=== PATIENT | female | born 1990 | race Caucasian/White ===

== ENCOUNTER 2016-08-09 08:34 | Day surgery (SDC) | payer BC ==
[2016-08-05 15:25] VITALS: BMI 26.5
[~2016-08-09 08:34] MED LIST: LACTATED RINGERS 1,000 ML IV SCH
[2016-08-09] MEDS ORDERED: LIDOCAINE 1% 20 ML VIAL (10MG/ML) FOR IV START INTRADERMA ONE (09:20)
[2016-08-09 09:40] VITALS: RESP 16; TEMP 97.5
[2016-08-09] MEDS ORDERED: PROPOFOL 10 MG/ML 20 ML VIAL IV ONE (09:42)
[2016-08-09] MEDS ORDERED: LIDOCAINE 1% INJ 10MG/ML (20 ML MDV) ONE (09:42)
[2016-08-09] MEDS ORDERED: fentaNYL (PF) 50 MCG/ML 2 ML AMP ONE (09:42)
--- NOTE | 2016-08-09 10:12 | P.PCN ---
Date of Procedure: 08/09/16 Preoperative Diagnosis: Postoperative Diagnosis: Procedure(s) Performed: Procedure: Colonoscopy and biopsy. Preoperative diagnosis: Change in bowel habits and family history of Crohn's disease. Postoperative diagnosis: Exam of the colon and terminal ileum within normal limits. Preparation: HalfLytely prep. Sedation: Was provided by anesthesia. Brief clinical history: The patient is a 26-year-old female who is referred for this evaluation because of change in bowel habits and occasional rectal bleeding. There is family history of Crohn's disease in her father. This evaluation is to assess for inflammatory bowel disease. Procedure: With the patient on her left lateral decubitus position and after informed consent and adequate sedation the perianal area was inspected and it did not show any fissures or fistulas. There were no masses felt on digital rectal examination. The Olympus CFQ 160L video colonoscope was then inserted in the rectum in the usual fashion and advanced to the cecum. I intubated the ileocecal valve and examined the terminal ileum. Terminal ileum and colon appeared healthy with no edema, erythema, friability, ulceration, exudation or spontaneous bleeding. No polyps or tumors were seen or any obvious diverticular disease or other pathology. I retroflexed the endoscope in the rectum before the endoscope was withdrawn. Slightly prominent anal papillae noted but there was no bleeding or other pathology. The patient tolerated the procedure well. Plan: The patient was reassured. Will await biopsy results. She will follow- up with you as planned and further plans will be made based on her course. Other causes of bowel issues could be considered including dietary intolerances and functional bowel disease. I will be happy to see in the future if her symptoms persist. Implants: Indications for Procedure: Operative Findings: Description of Procedure:
[2016-08-09 10:37] VITALS: BP 111/80; PULSE 73
== END 2016-08-09 10:58 | disposition home or self-care (01) ==
LOC: ORWHC2ENDO 08:34
DX: R19.4 Change in bowel habit (principal); K62.5 Hemorrhage of anus and rectum; Z83.79 Family history of other diseases of the digestive system
CPT/HCPCS: 81025; 88305; 45380; J2001; J3010; J2704

== ENCOUNTER → 2016-10-04 | Outpatient (CLI) | payer BC ==
[2016-10-04 12:34] LABS: CH 30.4; CHCM 35.9; HCT 38.6 % (34.0-46.0); HDW 2.63; HGB 13.2 gm/dL (11.4-16.0); MCHC 34.1 g/dL (31.0-37.0); Mean Platelet Volume 7.3; RBC 4.54 m/uL (3.80-5.40); RDW 14.1 % (11.5-15.5); WBC 9.7 k/uL (3.8-10.6)
[2016-10-04 12:48] LABS: Glucose 98 mg/dL (74-99); Non-African American GFR(MDRD) >60 (>60 ml/min/1.73 sqM)
[2016-10-04 13:18] LABS: Hepatitis B Surface Ag Index 0.06
[2016-10-04 15:46] LABS: Treponemal Ab Non-Reactive (Non-Reactive)
[2016-10-05 07:02] LABS: Toxoplasma Antibody (IgG) <3.0 IU/mL (<7.2)
== END | disposition home or self-care (01) ==
LOC: LABWHC1 11:55
PROVIDERS: ATTEND Obstetrics & Gynecology
DX: O26.811 Pregnancy related exhaustion and fatigue, first trimester (principal); Z3A.00 Weeks of gestation of pregnancy not specified
CPT/HCPCS: 36415; 82565; 82947; 85027; 86762; 86777; 86778; 86780; 86850; 86900; 86901; 87340; 87390

== ENCOUNTER → 2016-11-15 | Outpatient (CLI) | payer BC ==
[2016-11-16 10:27] LABS: Alpha Fetoprotein (M.O.M) 1.28; B-HCG (M.O.M.) 0.97; Gestational Age (days) 0; Human Chorionic Gonadotropin 36.4 IU/mL; Inhibin A (M.O.M.) 0.93; Interpretation SeeBelow; Maternal Age at EDD (Yrs) 25; Smoker No; Unconjugated Estriol (M.O.M.) 0.95
== END | disposition home or self-care (01) ==
LOC: LABWHC1 11:13
PROVIDERS: ATTEND Obstetrics & Gynecology
DX: Z34.82 Encounter for supervision of other normal pregnancy, second trimester (principal)
CPT/HCPCS: 36415; 82105; 82677; 84702; 86336

== ENCOUNTER 2017-04-13 16:16 | Inpatient (IN) | payer BC ==
[2017-04-13 17:06] LABS: Appearance,Urine Turbid (Clear); Bacteria,Urine Many /hpf; Bilirubin,Urine Negative (Negative); Blood,Urine Trace (Negative); Budding Yeast,Urine Few /hpf; Color,Urine Yellow; Glucose,Urine (UA) Negative (Negative); Ketones,Urine 1+ (Negative); Leukocyte Esterase,Urine Large (Negative); Mucus,Urine Occasional /hpf; Nitrite,Urine Positive (Negative); Protein,Urine Trace (Negative); RBC,Urine 20 /hpf (0-5); Squamous Epithelial Cell,Urine 30 /hpf (0-4); Urobilinogen,Urine <2.0 mg/dL (<2.0); WBC,Urine 34 /hpf (0-5)
[2017-04-13 17:26] LABS: Basophils % (A) 0 %; Eosinophils # (A) 0.1 k/uL (0-0.7); Eosinophils % (A) 1 %; HCT 33.8 % (34.0-46.0); HGB 10.6 gm/dL (11.4-16.0); Hypochromasia Moderate; Lymphocytes # (A) 1.9 k/uL (1.0-4.8); Lymphocytes % (A) 14 %; MCH 24.2 pg (25.0-35.0); MCHC 31.4 g/dL (31.0-37.0); MCV 77.2 fL (80.0-100.0); Mean Platelet Volume 7.2; Monocytes # (A) 0.7 k/uL (0-1.0); Monocytes % (A) 5 %; Neutrophils # (A) 10.7 k/uL (1.3-7.7); Neutrophils % (A) 78 %; Platelet Count 437 k/uL (150-450); Poikilocytosis Slight; RBC 4.38 m/uL (3.80-5.40); WBC 13.8 k/uL (3.8-10.6)
[2017-04-13] MEDS ORDERED: LIDOCAINE 1% (PF) 10 MG/ML (30 ML SDV) SQ PRN (17:26)
[2017-04-13] MEDS ORDERED: OXYTOCIN 10 UNIT/ML 1 ML VIAL IM PRN (17:26)
[2017-04-13] MEDS ORDERED: CARBOPROST TROMETHAMINE 250 MCG/ML 1 ML AMP IM PRN (17:26)
[2017-04-13] MEDS ORDERED: TERBUTALINE 1 MG/ML VIAL SQ PRN (17:26)
[2017-04-13] MEDS ORDERED: METHYLERGONOVINE 0.2 MG/ML 1 ML AMP IM PRN (17:26)
[2017-04-13] MEDS ORDERED: AMPICILLIN 2,000 MG in SODIUM CHLORIDE 0.9% 100 ML IVPB STA (17:29)
[2017-04-13] MEDS ORDERED: OXYTOCIN 20 UNITS/1000 ML NS 1,000 ML IV SCH (17:30)
[2017-04-13 17:50] LABS: ALT 28 U/L (9-52); AST 25 U/L (14-36); Blood Urea Nitrogen 7 mg/dL (7-17); LDH 568 U/L (313-618); Uric Acid 5.5 mg/dL (3.7-7.4)
[2017-04-13] MEDS: LACTATED RINGERS 1,000 ML IV SCH ×2 (18:07→23:42)
[2017-04-13] MEDS ORDERED: INFLUENZA VACCINE (6 MOS+) 60 MCG/0.5 ML SYRINGE IM ONE (18:18)
--- NOTE | 2017-04-13 19:04 | P.HPOB ---
History of Present Illness H&P Date: 04/13/17 Chief Complaint: Headache and blurred vision This is a 27-year-old female 2 para 0 with an estimated date of confinement of 05/01/2017, estimated gestational age of 37-3/7 weeks, who presented to labor and delivery complaining of headache and blurry vision today. She states the headache is fairly mild but she did have trouble seeing earlier today. She denies any chest pain. She admits to good movement. She denies any regular contractions. She has been having some swelling in her feet and a little bit in her hands. Her blood pressure initially in triage was 160/87. They have come down slightly but still are running in the 140s over 80s to 90s. Her urine showed trace protein. Her lab work is pending at this time. Based on the fact she is over 37 weeks and has a minimum of gestational hypertension, the decision is made to admit and induce labor. labs: GC/chlamydia-negative HIV-nonreactive Syphilis antibody-nonreactive Toxoplasma-negative Random glucose-98 Hepatitis B surface antigen-negative Hemoglobin-13.2 Rubella-immune Blood type-A+ Antibody screen-negative Quad screen-negative Obstetrical ultrasound-normal anatomy One hour Glucola-150 Three-hour Glucola-within normal limits Group B streptococcus-positive Obstetrical history: . History of 1 miscarriage which required D&C. Gynecologic history: No history of sexual transmitted diseases. Social history: She is engaged. She works full-time at a [employer]. Review of Systems Constitutional: Denies chills, Denies fever Eyes: bilateral blurred vision Cardiovascular: Denies chest pain, Denies shortness of breath Respiratory: Denies cough Gastrointestinal: Denies abdominal pain, Denies diarrhea, Denies nausea, Denies vomiting Genitourinary: Reports Musculoskeletal: Reports low back pain Neurological: Reports headaches, Reports visual changes Past Medical History Additional Past Medical History / Comment(s): She has a history of shingles pain does get outbreaks from time to time. History of Any Multi-Drug Resistant Organisms: None Reported Additional Past Surgical History / Comment(s): D&C Past Anesthesia/Blood Transfusion Reactions: No Reported Reaction Past Psychological History: No Psychological Hx Reported Smoking Status: Never smoker Past Alcohol Use History: None Reported Past Drug Use History: None Reported - Past Family History Mother Family Medical History: Cancer Additional Family Medical History / Comment(s): breast Medications and Allergies Home Medications Medication Instructions Recorded Confirmed Type Iron 45 mg PO DAILY 04/13/17 04/13/17 History Pnv,Calcium 72/Iron/Folic Acid 1 tab PO DAILY 04/13/17 04/13/17 History [ Plus Tablet] valACYclovir [Valtrex] 500 mg PO DAILY 04/13/17 04/13/17 History Allergies Allergy/AdvReac Type Severity Reaction Status Date / Time No Known Allergies Allergy Verified 04/13/17 16:34 Exam Osteopathic Statement: *. No significant issues noted on an osteopathic structural exam other than those noted in the History and Physical/Consult. - Vital Signs Vital signs: Intake and Output 04/13/17 04/13/17 04/13/17 06:59 14:59 22:59 Other: Weight 83.915 kg Patient Weight 04/14/17 06:59 Weight 83.915 kg HEENT: Within normal limits Heart: Regular rate and rhythm Lungs: Clear to auscultation bilaterally Abdomen: Cervix: 1-1/2 cm/60%/-2 station heart tones: Reactive Contractions: Irregular Extremities: 1+ pitting edema with 3+ deep tendon reflexes in bilateral lower extremities. Results Result Diagrams: 04/13/17 17:15 Abnormal Lab Results - Last 24 Hours (Table) 04/13/17 04/13/17 Range/Units 16:49 17:15 WBC 13.8 H (3.8-10.6) k/uL Hgb 10.6 L (11.4-16.0) gm/dL Hct 33.8 L (34.0-46.0) % MCV 77.2 L (80.0-100.0) fL MCH 24.2 L (25.0-35.0) pg Neutrophils # 10.7 H (1.3-7.7) k/uL Urine Appearance Turbid H (Clear) Urine Protein Trace H (Negative) Urine Ketones 1+ H (Negative) Urine Blood Trace H (Negative) Urine Nitrite Positive H (Negative) Ur Leukocyte Esterase Large H (Negative) Urine RBC 20 H (0-5) /hpf Urine WBC 34 H (0-5) /hpf Urine WBC Clumps Few H (None) /hpf Ur Squamous Epith Cells 30 H (0-4) /hpf Urine Bacteria Many H (None) /hpf Urine Mucus Occasional H (None) /hpf Urine Yeast (Budding) Few H (None) /hpf Assessment and Plan (1) Gestational hypertension Current Visit: Yes Status: Acute Code(s): O13.9 - GESTATIONAL HTN W/O SIGNIFICANT PROTEINURIA, UNSP TRIMESTER SNOMED Code(s): 16983938 (2) 37 weeks gestation of Current Visit: Yes Status: Acute Code(s): Z3A.37 - 37 WEEKS GESTATION OF SNOMED Code(s): 05659483 Plan: I have spoken with the patient regarding induction of labor due to the fact that she has visual changes along with elevated blood pressures and she is beyond 37 weeks. She is therefore diagnosed with gestational hypertension and will undergo oxytocin induction of labor. We'll carefully monitor blood pressures. Expectant management.
[2017-04-13] MEDS ORDERED: BUTORPHANOL 1 MG/ML 1 ML VIAL IV PRN (19:14)
[2017-04-13 19:24] VITALS: BMI 32.8
[2017-04-13] MEDS: AMPICILLIN 1,000 MG in SODIUM CHLORIDE 0.9% 50 ML IVPB SCH (22:25)
[2017-04-13] MEDS ORDERED: fentaNYL (PF) 50 MCG/ML 5 ML AMP ONE (23:49)
[2017-04-13] MEDS ORDERED: BUPIVACAINE (PF) 0.25% 30 ML VIAL ONE (23:49)
[2017-04-13] MEDS ORDERED: SODIUM CHLORIDE 0.9% 100 ML BAG ONE (23:49)
--- NOTE | 2017-04-14 02:41 | P.PROBDLV ---
Vaginal Delivery Note - . Vaginal Delivery Note: The patient underwent oxytocin induction of labor and artificial rupture membranes with clear fluid noted. Her blood pressures did stay stable throughout her labor. She did receive epidural anesthesia. Once reaching complete dilation, she began pushing. 's head came to a crown. She pushed for just under an hour. With one further push the 's head delivered across the perineum and a left occiput anterior position. She was encouraged to continue pushing, however it was noted that shoulder dystocia was present. She was placed in Evangelina position and encouraged one further push. This did not dislodge the shoulder and therefore I placed my gloved finger behind the baby's back and turned the posterior shoulder and a counterclockwise manner and along with suprapubic pressure from nursing staff, in the next push the shoulder did dislodge. The entire shoulder dystocia lasted approximately 30 seconds. Nose and mouth were then bulb suctioned. With one further push the remainder the easily delivered and was placed on mother's abdomen. Nuchal cord was reduced around the body with delivery. A viable female infant is noted with scores of 8 at 1 minute and 9 at 5 minutes and weight of 6 pounds 7.9 ounces. Her placenta delivered shortly thereafter, intact, with a three-vessel cord. Uterus contracted well after oxytocin was given and uterine massage was carried out. Inspection of the perineum revealed a small first-degree perineal laceration. This area was anesthetized with 1% lidocaine and then sutured with 3-0 Vicryl suture in a running locked fashion. There was noted some bilateral periurethral abrasions, however these were hemostatic. Estimated blood loss is approximately 150 mL's. Both mother and infant are in stable condition.
--- NOTE | 2017-04-14 02:48 | P.MSEPDOC ---
Presenting Problems - Arrival Data Date of Arrival on Unit: 04/13/17 Time of Arrival on Unit: 16:26 Mode of Transport: Ambulatory - Complaint OB-Reason for Admission/Chief Complaint: PIH Comment: headache, dizziness, swelling Medical History - Information : 2 Para: 0 Term: 0 : 0 Abortions: Spontaneous or Elective: 1 Number of Living Children: 0 - Gestational Age Gestational Age by ELVIS (wks/days): 37 Weeks and 2 Days Review of Systems - Review of Systems Neurological: Dizziness Vital Signs - Temperature Temperature: 97.5 F Temperature Source: Temporal Artery Scan - Pulse Right Pulse Rate: 105 Pulse Assessment Method: Automatic Cuff - Respirations Respiratory Rate: 16 Oxygen Delivery Method: Room Air - Blood Pressure Right Arm Blood Pressure: 135/66 Blood Pressure Mean: 89 Blood Pressure Source: Automatic Cuff Medical Screen Scoring (Pre) - Cervical Exam Dilation: 1-3 cm = 1 Membranes: Intact - Uterine Contractions Frequency: > 5 minutes apart = 1 Duration: > 40 seconds = 2 - Maternal Vital Signs Maternal Blood Pressure: Systolic >139 = 2 Signs of Preeclampsia: Headache = 1, Nausea/Vomiting = 1, Visual Disturbance = 1 , 3+ edema of dependent extremities = 2 Maternal Respirations: N/A - Pain Assessment Pain Location and Character: Head Pain Scale Used: Numeric (1 - 10) Pain Intensity: 4 Pain Description: *Acute, Aching Pain Frequency: Constant Pain Duration: 3 Pain Duration Units: Hours Pain Behavior: None Exhibited Pain Aggravating Factors: Activity, Bright Light Non-Pharmacological Interventions: Darkened Room, Reduce Environmental Stimuli - Maternal Trauma Maternal Trauma: N/A - Assessment Baseline FHR: 135 Heart Rate - NICHD Category: Category I (Normal) = 0 NST: Reactive Position: N/A Station: N/A - Total Score Total Score (Pre): 11 - Level of Risk Level of Risk: High (10+) Physician Notification (Pre) - Physician Notified Physician Notified Date: 04/13/17 Physician Notified Time: 17:15 Spoke With: Ana Zarco Order Received: Yes (admit for labor induction, [facility]) Disposition - Disposition OB Disposition: Admit I agree with the RN Medical Screening Exam: Yes Risk & Benefit of care provided described in d/c instruction: Yes Diagnosis: GESTATIONAL HTN W/O SIGNIFICANT PROTEINURIA, THIRD TRIMESTER
[2017-04-14] MEDS ORDERED: OXYTOCIN 20 UNITS/1000 ML NS 1,000 ML IV SCH (03:12)
[2017-04-14] MEDS ORDERED: BUPIVACAINE (PF) 0.25% 25 ML, fentaNYL (PF) 200 MCG in SODIUM CHLORIDE 0.9% 71 ML EPIDURAL ONE (07:27)
[2017-04-14] MEDS ORDERED: diphenhydrAMINE 50 MG/ML 1 ML VIAL IVP PRN ×2 (07:59)
[2017-04-14] MEDS ORDERED: WITCH HAZEL 1 EACH MED..PAD TOPICAL PRN (07:59)
[2017-04-14] MEDS ORDERED: ACETAMINOPHEN TAB 325 MG TAB PO PRN (07:59)
[2017-04-14] MEDS ORDERED: SIMETHICONE 80 MG CHEWABLE PO PRN (07:59)
[2017-04-14] MEDS ORDERED: LANOLIN CREAM 5 GM TUBE TOPICAL PRN (07:59)
[2017-04-14] MEDS ORDERED: BENZOCAINE/MENTHOL SPRAY 1 GM/SPRAY AEROSOL TOPICAL PRN (07:59)
[2017-04-14] MEDS ORDERED: diphenhydrAMINE 25 MG CAP PO PRN (07:59)
[2017-04-14] MEDS ORDERED: ZOLPIDEM 5 MG TAB PO PRN (07:59)
[2017-04-14] MEDS ORDERED: HYDROCORTISONE 2.5% RECTAL CREAM 30 GM TUBE RECTAL PRN (07:59)
[2017-04-14] MEDS ORDERED: diphenhydrAMINE 50 MG CAP PO PRN (07:59)
[2017-04-14] MEDS: SENNOSIDES-DOCUSATE SODIUM 1 EACH TAB PO SCH ×2 (09:38→19:58)
[2017-04-14] MEDS: valACYclovir 500 MG TAB PO SCH (09:38)
[2017-04-14] MEDS: IBUPROFEN 600 MG TAB PO PRN (11:34)
[2017-04-14] MEDS ORDERED: INFLUENZA VACCINE (6 MOS+) 60 MCG/0.5 ML SYRINGE IM ONE (14:22)
[2017-04-14] MEDS: AMPICILLIN 1,000 MG in SODIUM CHLORIDE 0.9% 50 ML IVPB SCH (19:35)
[2017-04-15] MEDS: IBUPROFEN 600 MG TAB PO PRN ×2 (03:03→12:09)
[2017-04-15 07:54] LABS: Basophils # (A) 0.1 k/uL (0-0.2); Basophils % (A) 0 %; Eosinophils # (A) 0.1 k/uL (0-0.7); Eosinophils % (A) 1 %; HCT 29.3 % (34.0-46.0); Hypochromasia Marked; Lymphocytes # (A) 2.6 k/uL (1.0-4.8); Lymphocytes % (A) 20 %; MCH 24.2 pg (25.0-35.0); MCV 77.9 fL (80.0-100.0); Mean Platelet Volume 6.8; Monocytes # (A) 0.7 k/uL (0-1.0); Monocytes % (A) 5 %; Neutrophils # (A) 9.2 k/uL (1.3-7.7); Neutrophils % (A) 71 %; Platelet Count 381 k/uL (150-450); Poikilocytosis Slight; RBC 3.76 m/uL (3.80-5.40); RDW 15.1 % (11.5-15.5)
[2017-04-15 07:55] LABS: HGB 9.1 gm/dL (11.4-16.0)
[2017-04-15] MEDS: valACYclovir 500 MG TAB PO SCH (08:43)
--- NOTE | 2017-04-15 10:38 | P.DS ---
Providers Date of admission: 04/13/17 17:30 Expected date of discharge: 04/15/17 Attending physician: Lizzie Perez Primary care physician: Stated None - Discharge Diagnosis(es) (1) Gestational hypertension Current Visit: Yes Status: Acute (2) Normal vaginal delivery Current Visit: Yes Status: Acute Hospital Course: PT presented with elevated blood pressures and underwent an induction of labor. She had a normal vaginal delivery. HEr pp course was uncomplicated. She will be discharged home PPD #1 in stable condition to follow up with Dr Perez in 6 weeks. Plan - Discharge Summary New Discharge Prescriptions: No Action valACYclovir [Valtrex] 500 mg PO DAILY Pnv,Calcium 72/Iron/Folic Acid [ Plus Tablet] 1 tab PO DAILY Iron 45 mg PO DAILY Discharge Medication List Iron 45 mg PO DAILY 04/13/17 [History] Pnv,Calcium 72/Iron/Folic Acid [ Plus Tablet] 1 tab PO DAILY 04/13/17 [ History] valACYclovir [Valtrex] 500 mg PO DAILY 04/13/17 [History]
[2017-04-15] MEDS: SENNOSIDES-DOCUSATE SODIUM 1 EACH TAB PO SCH ×2 (12:12→20:25)
[2017-04-16] MEDS: SENNOSIDES-DOCUSATE SODIUM 1 EACH TAB PO SCH (08:43)
[2017-04-16 08:47] VITALS: PULSE 77
[2017-04-16] MEDS: valACYclovir 500 MG TAB PO SCH (09:10)
[2017-04-16] MEDS: IBUPROFEN 600 MG TAB PO PRN (10:04)
[2017-04-16 17:15] VITALS: BP 145/86; RESP 18; TEMP 97.6
== END 2017-04-16 17:45 | disposition home or self-care (01) | DRG 775 ==
LOC: FBPOP 16:16 → 4FBP 17:30
PROVIDERS: ADMIT Obstetrics & Gynecology; ATTEND Obstetrics & Gynecology
PROC: 10E0XZZ Delivery of Products of Conception, External Approach (ICD-10-PCS; principal; 2017-04-14)
PROC: 3E033VJ Introduction of Other Hormone into Peripheral Vein, Percutaneous Approach (ICD-10-PCS; 2017-04-14)
PROC: 10907ZC Drainage of Amniotic Fluid, Therapeutic from Products of Conception, Via Natural or Artificial Opening (ICD-10-PCS; 2017-04-14)
PROC: 00HU33Z Insertion of Infusion Device into Spinal Canal, Percutaneous Approach (ICD-10-PCS; 2017-04-14)
PROC: 3E0R3NZ Introduction of Analgesics, Hypnotics, Sedatives into Spinal Canal, Percutaneous Approach (ICD-10-PCS; 2017-04-14)
PROC: 0HQ9XZZ Repair Perineum Skin, External Approach (ICD-10-PCS; 2017-04-14)
DX: O13.4 Gestational [pregnancy-induced] hypertension without significant proteinuria, complicating childbirth (principal); O66.0 Obstructed labor due to shoulder dystocia; O99.824 Streptococcus B carrier state complicating childbirth; O70.0 First degree perineal laceration during delivery; O69.81X0 Labor and delivery complicated by cord around neck, without compression, not applicable or unspecified; Z37.0 Single live birth; Z3A.37 37 weeks gestation of pregnancy; Z86.19 Personal history of other infectious and parasitic diseases; Z80.3 Family history of malignant neoplasm of breast; Z79.899 Other long term (current) drug therapy
CPT/HCPCS: 59025; 81001; 82565; 83615; 84450; 84460; 84520; 84550; 85025; 88307; 90686; 99215

== ENCOUNTER 2017-06-02 06:12 | Day surgery (SDC) | payer BC ==
[2017-05-30 14:36] VITALS: BMI 27.6
--- NOTE | 2017-06-01 19:10 | P.HPOB ---
History of Present Illness H&P Date: 06/01/17 Chief Complaint: Family planning This is a 27-year-old female 2 para 1 who presents for laparoscopic bilateral tubal ligation via fulguration for family planning. She recently delivered her child vaginally and wishes permanent sterilization. She has not resumed any intercourse since delivery. Obstetrical history: G2 P 1. History of 1 vaginal delivery and 1 miscarriage. Gynecologic history: No history of sexual transmitted diseases. Social history: She is engaged. She works at a [employer]. Review of Systems Constitutional: Denies chills, Denies fever Eyes: denies blurred vision, denies pain Ears, nose, mouth and throat: Denies headache, Denies sore throat Cardiovascular: Denies chest pain, Denies shortness of breath Respiratory: Denies cough Gastrointestinal: Denies abdominal pain, Denies diarrhea, Denies nausea, Denies vomiting Genitourinary: Denies dysuria, Denies hematuria Menstruation: Reports amenorrhea (Lactational) Musculoskeletal: Denies myalgias Integumentary: Denies pruritus, Denies rash Neurological: Denies numbness, Denies weakness Psychiatric: Denies anxiety, Denies depression Past Medical History Past Medical History: No Reported History Additional Past Medical History / Comment(s): She has a history of shingles pain does get outbreaks from time to time. History of Any Multi-Drug Resistant Organisms: None Reported Additional Past Surgical History / Comment(s): D&C Past Anesthesia/Blood Transfusion Reactions: No Reported Reaction Past Psychological History: No Psychological Hx Reported Smoking Status: Never smoker Past Alcohol Use History: None Reported Past Drug Use History: None Reported - Past Family History Mother Family Medical History: Cancer Additional Family Medical History / Comment(s): breast Medications and Allergies Home Medications Medication Instructions Recorded Confirmed Type No Known Home Medications [No 05/30/17 05/30/17 History Known Home Medications] Allergies Allergy/AdvReac Type Severity Reaction Status Date / Time No Known Allergies Allergy Verified 05/30/17 14:32 Exam Osteopathic Statement: *. No significant issues noted on an osteopathic structural exam other than those noted in the History and Physical/Consult. HEENT: Within normal limits Lungs: Clear to auscultation bilaterally Heart: Regular rate and rhythm Abdomen: Soft, nontender Pelvic exam: Uterus is small, anteverted, with no adnexal masses or tenderness noted. Extremities: Negative Homans Assessment and Plan (1) Family planning Status: Acute Code(s): Z30.09 - ENCOUNTER FOR OTH GENERAL CNSL AND ADVICE ON CONTRACEPTION SNOMED Code(s): 679817663 Plan: Proceed with laparoscopic bilateral tubal ligation via fulguration. I have discussed the risks, benefits, and alternative therapies for the above- mentioned procedure and for both sedation/anesthesia as well as necessary blood products administration, if indicated, as they pertain to this patient. The patient has indicated her understanding and acceptance of the risks and procedures discussed.
[~2017-06-02 06:12] MED LIST changes: +DEXAMETHASONE SOD PHOSPHATE 10 MG/ML 1 ML VIAL IV ONE; +MIDAZOLAM 2 MG/2 ML VIAL IV PRN; +ONDANSETRON 4 MG/2 ML VIAL IVP ONE; +Pre Op ABX Message 1 EACH MISC MISCELLANE ONE; +SCOPOLAMINE 1.5MG/72HR PATCH TRANSDERM ONE; +fentaNYL (PF) 50 MCG/ML 2 ML AMP IV PRN
[2017-06-02 06:42] VITALS: RESP 16
[2017-06-02] MEDS ORDERED: LIDOCAINE 1% 20 ML VIAL (10MG/ML) FOR IV START INTRADERMA ONE (06:54)
[2017-06-02] MEDS ORDERED: fentaNYL (PF) 50 MCG/ML 2 ML AMP ONE (07:28)
[2017-06-02] MEDS ORDERED: ROCURONIUM BROMIDE 10 MG/ML 10 ML VIAL IV ONE (07:28)
[2017-06-02] MEDS ORDERED: LIDOCAINE 1% INJ 10MG/ML (20 ML MDV) ONE (07:28)
[2017-06-02] MEDS ORDERED: KETOROLAC 30 MG/ML 1 ML VIAL ONE (07:28)
[2017-06-02] MEDS ORDERED: GLYCOPYRROLATE 0.2 MG/ML 2 ML VIAL ONE (07:28)
[2017-06-02] MEDS ORDERED: SUCCINYLCHOLINE CHLORIDE 100 MG/5 ML SYR IV ONE (07:28)
[2017-06-02] MEDS ORDERED: NEOSTIGMINE 1 MG/ML 10 ML VIAL ONE (07:28)
[2017-06-02] MEDS ORDERED: MIDAZOLAM 2 MG/2 ML VIAL ONE (07:28)
[2017-06-02] MEDS ORDERED: PROPOFOL 10 MG/ML 20 ML VIAL IV ONE (07:28)
[2017-06-02] MEDS ORDERED: BUPIVACAINE (PF) 0.25% 30 ML VIAL SQ ONE ×2 (07:50→08:08)
[2017-06-02] MEDS ORDERED: MEPERIDINE 50 MG/ML SYRINGE IVP ONE ×2 (08:34→08:39)
--- NOTE | 2017-06-02 08:37 | P.OP ---
Date of Procedure: 06/02/17 Preoperative Diagnosis: Family planning Postoperative Diagnosis: Same Procedure(s) Performed: Laparoscopic bilateral tubal ligation via fulguration Anesthesia: YANETH Surgeon: Lizzie Perez Estimated Blood Loss (ml): 20 Pathology: none sent Condition: stable Disposition: same day Indications for Procedure: This is a 27-year-old female 2 para 1 who presents for laparoscopic bilateral tubal ligation via fulguration for family planning. She recently delivered her child vaginally and wishes permanent sterilization. She has not resumed any intercourse since delivery. Operative Findings: Uterus is anteverted with no adnexal masses palpated. Uterus is sounded to 8 cm. Upon laparoscopy, both tubes and ovaries appeared normal. Uterus appeared normal. Appendix was visualized and appeared normal. Description of Procedure: The patient is taken to the operating room where she is placed in the dorsal lithotomy position. She is prepped and draped in the normal sterile fashion. Examination is performed under anesthesia. Uterus is found to be in a anteverted position. No adnexal masses were palpated. Next a bivalve speculum was placed in the patient's vagina. A single-tooth tenaculum was used to grasp the anterior lip of the cervix. The uterus was sounded to 8 cm. The kroner uterine manipulator was then inserted through the cervix and the balloon was inflated. The single-tooth tenaculum is removed speculum was removed gloves were changed and attention was turned to the abdomen. The infraumbilical fold was grasped in transverse fashion with 2 Allis clamps. A small transverse incision was made with a scalpel. A hemostat was used to carry the incision down to the underlying layer of fascia. A towel clip was placed above the umbilicus for retraction. A 11 mm disposable bladeless trocar was then inserted into the peritoneal cavity under direct visualization. Once inside, pneumoperitoneum was achieved with CO2 gas. The insert was removed and the camera was placed. Intraperitoneal placement was confirmed. No bleeding was noted. Next the patient was placed in Trendelenburg position. A small stab incision was made suprapubically and a 5 mm disposable bladeless trocar was inserted into the peritoneal cavity under direct visualization. Once inside pelvic contents were inspected. Next a bipolar Kleppinger instrument was placed through the inferior trocar and the midportion of each tube was brought away from other structures and completely fulgurated on approximate 2-3 cm segment of each tube. Excellent hemostasis was noted. A picture was taken. Pneumoperitoneum was released after the inferior trocar was removed under direct visualization. The upper trocar was then removed. The fascial incision was closed with 0 Vicryl suture in interrupted vloisa-mu-focel stitch. The skin incisions were then closed with 4-0 Vicryl suture in a subcuticular fashion. Next the kroner uterine manipulator was removed. There was some bleeding noted and therefore the speculum was replaced and cervix was visualized. Some pressure was applied to the anterior lip of the cervix where the single-tooth tenaculum had grasp the cervix and once this was removed. Minimal bleeding was noted. The patient was noted to be also on her menses. The speculum was then removed. All sponge and needle counts are correct. The patient is then taken to recovery room in stable condition.
[2017-06-02 08:50] VITALS: TEMP 97
[2017-06-02] MEDS ORDERED: LACTATED RINGERS 1,000 ML IV ONE ×2 (08:51)
[2017-06-02 09:46] VITALS: BP 137/91; PULSE 64
== END 2017-06-02 10:08 | disposition home or self-care (01) ==
LOC: OR 06:12
PROVIDERS: ATTEND Obstetrics & Gynecology
DX: Z30.2 Encounter for sterilization (principal); K21.9 Gastro-esophageal reflux disease without esophagitis; Z80.3 Family history of malignant neoplasm of breast
CPT/HCPCS: 58670; 81025; J2250; J1100; J2710; J2175; J2405; J2001; J3010; J1885; J0330; J2704

== ENCOUNTER → 2017-11-28 | Outpatient (CLI) | payer BC ==
--- NOTE | 2017-11-28 17:22 | XR ---
Left foot HISTORY: Left foot pain 3 views of the left foot No comparisons Soft tissue swelling is noted. Bone mineralization, joint spaces and alignment are maintained. IMPRESSION: Mild soft tissue swelling.
== END | disposition home or self-care (01) ==
LOC: RADXRMAIN 14:20
PROVIDERS: ATTEND Family Medicine
DX: M79.89 Other specified soft tissue disorders (principal); M79.672 Pain in left foot

== ENCOUNTER → 2018-04-20 | Outpatient (CLI) | payer BC ==
--- NOTE | 2018-04-20 09:40 | XR ---
EXAMINATION TYPE: XR chest 2V DATE OF EXAM: 04/20/2018 COMPARISON: NONE HISTORY: Persistent cough for 2 months TECHNIQUE: Frontal and lateral views of the chest are obtained. FINDINGS: There is no focal air space opacity, pleural effusion, or pneumothorax seen. The cardiac silhouette size is within normal limits. The osseous structures are intact. Metallic linear density overlies the lateral left midlung on the frontal view only, external to the patient. IMPRESSION: No acute cardiopulmonary process.
== END | disposition home or self-care (01) ==
LOC: RADXRMAIN 09:05
PROVIDERS: ATTEND Family Medicine
DX: J20.8 Acute bronchitis due to other specified organisms (principal)
CPT/HCPCS: 71046

== ENCOUNTER → 2019-08-26 | Outpatient (CLI) | payer BC ==
--- NOTE | 2019-08-26 21:41 | XR ---
EXAMINATION TYPE: XR cervical spine comp DATE OF EXAM: 08/26/2019 TECHNIQUE: Frontal, lateral, oblique, and open mouth view of the cervical spine are obtained. HISTORY: M54.2 headaches with neck pain and nausea. COMPARISON: None FINDINGS: The cervical spine is visualized in its entirety from C1 thru the top of T1 level, there i s slight grade 1 retrolisthesis C2 and C3 and C3 on C4 without evidence of acute fracture or dislocat ion. The pre-vertebral soft tissue appears within normal limits. The C1-C2 articulation is within n ormal limits on the open mouth view. Vertebral body heights and disc space heights are maintained. T he oblique images are within normal limits. Overlying soft tissue is unremarkable. IMPRESSION: As above.
== END | disposition home or self-care (01) ==
LOC: RADXRMAIN 17:08
PROVIDERS: ATTEND Family Medicine
DX: M43.12 Spondylolisthesis, cervical region (principal)
CPT/HCPCS: 72050

== ENCOUNTER → 2019-09-14 | Outpatient (CLI) | payer BC ==
--- NOTE | 2019-09-14 10:25 | CT ---
EXAMINATION TYPE: CT brain wo/w con DATE OF EXAM: 09/14/2019 COMPARISON: None HISTORY: Headaches with nausea x 6-[address] DLP: 2072mGycm CONTRAST: CT scan of the head is performed without and with IV Contrast, patient injected with 100 mL of Isovue M300. Unenhanced followed by contrast enhanced CT of the brain is submitted for evaluation. The ventricles are midline. There is no evidence for intracranial hemorrhage or extra-axial collection. No mass e ffects are identified. Visualized bony calvarium is intact. Contrast is administered and no enhanci ng lesions are detected. No pathologic enhancement is identified. If symptoms persist consider MRI. IMPRESSION: Normal CT brain.
== END | disposition home or self-care (01) ==
LOC: RADCTMAIN 09:49
PROVIDERS: ATTEND Family Medicine
DX: R51 Headache (principal); M54.2 Cervicalgia
CPT/HCPCS: 70470; Q9967

== ENCOUNTER → 2022-01-10 | Outpatient (CLI) | payer BC ==
--- NOTE | 2022-01-10 13:00 | USB ---
Reason for Exam: Clinical finding. Patient History: Menarche at age 15. First Full-Term at age 27. Patient used Hormonal Contraceptives for 8 years. Technique: Method: Whole Breast Handheld. Findings: The whole breast of the left breast, the axilla of the left breast and the retroareolar of the left breast were scanned. A complete US of all four quadrants of the breast and retro-areolar region were reviewed. Additional evaluation of the left axilla. No suspicious solid masses identified. A simple ovoid cyst without internal vascularity identified within the left breast at 2:00 8 cm from the nipple. Overall Assessment: Benign, BI-RAD 2 Management: Screening Mammogram of both breasts at age 42. A clinical breast exam by your physician is recommended on an annual basis and results should be correlated with mammographic findings. This exam should not preclude additional follow-up of suspicious palpable abnormalities. Results were given to the patient verbally at the time of exam. Electronically signed and approved by: Sukhdeep Camarena D.O.
== END | disposition home or self-care (01) ==
LOC: RADMAMWWP 10:57
PROVIDERS: ATTEND Family Medicine
DX: N64.4 Mastodynia (principal)